=== PATIENT | female | born 1970 | race Caucasian/White ===

== ENCOUNTER → 2020-11-23 00:37 | Outpatient (CLI) | payer MEDICAID, SELFPAY ==
[2020-11-23 21:23] LABS: SARS-CoV-2 RNA PCR Negative
== END ==
PROVIDERS: Visit Provider Otolaryngology
DX: Z01.812 Encounter for preprocedural laboratory examination (principal); Z20.822 Contact with and (suspected) exposure to COVID-19
CPT/HCPCS: C9803; U0003; U0005

== ENCOUNTER 2020-11-26 01:27 | Day surgery (SDC) | payer MEDICAID, SELFPAY ==
[2020-11-19 14:26] VITALS: BMI 29.9
--- NOTE | 2020-11-25 05:36 | PM.HPGS ---
History of Present Illness History of Present Illness Consent: Risks, benefits, and alternatives have been discussed and questions answered. Patient agrees to proceed with procedure. Chief complaint: right thyroid mass Narrative: Catie Puente is a 50 year old female has a right thyroid nodule which is increased in size over the last several years she feels pressure when she swallows Review of Systems Review of Systems: All systems reviewed & are unremarkable except as noted in HPI and below PMFSH Family History Family History Mother Hypertension Thyroid disorder Sibling Hypertension Thyroid disorder Social History Social History Smoking status: Never smoker Alcohol intake: never Substance use: never Substance use type: does not use Spiritual care concerns: No Meds Home Medications and Allergies Home Medications Medication Instructions Recorded Confirmed Type losartan 25 mg tablet 25 mg PO DAILY 10/16/20 11/19/20 History bacillus coagulans-inulin 1 tablet PO DAILY 11/19/20 11/19/20 History [Probichew] Allergies Allergy/AdvReac Type Severity Reaction Status Date / Time Sulfa (Sulfonamide Allergy Intermediate Hives Verified 11/19/20 13:59 Antibiotics) Exam Narrative: Chest clear heart without murmurs abdomen is soft palpable right thyroid nodule Assessment and Plan Additional Plan Right thyroidectomy explained the risks Of possible recurrence lateral laryngeal nerve weakness
[2020-11-26] VITALS (9 sets, daily range): BP systolic 125–176; BP diastolic 75–94; PULSE 60–78; RESP 14–21; TEMP 36.1–36.8; O2SAT 97–100
--- NOTE | 2020-11-26 05:50 | WPDHPUPDATE1 ---
History and Physical Update Update Date/Time: 11/26/20 05:50 History and Physical has been reviewed, including an updated exam of the patient. There are NO changes in the patient's condition. Risks, benefits, and alternatives have been discussed and questions answered. Patient agrees to proceed with procedure.
--- NOTE | 2020-11-26 05:51 | WPDHPUPDATE1 ---
History and Physical Update Update Date/Time: 11/26/20 05:51 History and Physical has been reviewed, including an updated exam of the patient. There are NO changes in the patient's condition. Risks, benefits, and alternatives have been discussed and questions answered. Patient agrees to proceed with procedure.
[2020-11-26] MEDS: LACTATED RINGERS 1,000 ML 30 ML IV CONT ×2 (07:55→10:20)
[2020-11-26] MEDS: ACETAMINOPHEN 500 MG TABLET 1000 MG PO (07:57)
--- NOTE | 2020-11-26 08:28 | WPDANESEPPF ---
Anes - Initial Pre Proc Eval Procedure: Operation Date: 11/26/20 09:30 Proposed Procedures p Right Thyroidectomy - Shaq Lopez MD Date/Time: 11/26/20 08:28 Surgeon: Shaq Lopez MD Pre Op Diagnosis: right thyroid mass Patient Data Age: 50 Gender: F Height: 1.69 m Weight: 85.3 kg Last Vital Signs Temp 36.8 C 11/26/20 07:39 Pulse 66 11/26/20 07:39 Resp 18 11/26/20 07:39 BP 140/80 11/26/20 07:39 Pulse Ox 99 11/26/20 07:39 Allergies Allergy/AdvReac Type Severity Reaction Status Date / Time Sulfa (Sulfonamide Allergy Intermediate Hives Verified 11/19/20 13:59 Antibiotics) Home Medications Medication Instructions Recorded Confirmed Type losartan 25 mg tablet 25 mg PO DAILY 10/16/20 11/19/20 History bacillus coagulans-inulin 1 tablet PO DAILY 11/19/20 11/19/20 History [Probichew] Patient hx anesthesia problems: other (sore throat will use glidescope and 6.5 ETT) Family hx anesthesia problems: none PMFSH Past Medical History Medical History Hypertension Family History Family History Mother Hypertension Thyroid disorder Sibling Hypertension Thyroid disorder Social History Social History Smoking status: Never smoker Alcohol intake: never Substance use: never Substance use type: does not use Living arrangements: with family Spiritual care concerns: No Anes - Eval Final PreProcedure Day of Procedure 11/26/20 08:28 Patient weight: overweight Heart: regular rate and rhythm Lungs: clear to auscultation Airway: Mallampati scale class II Neurological: alert and oriented Last oral intake: >/= 8 hours ASA classification: II Emergent: no Anesthetic plan: proceed Anesthesia type and monitoring: general ETT and standard monitoring Informed Consent: The patient's anesthetic plan and its attendant risks and benefits were discussed with the patient/family/POA. Questions were solicited and answers provided to the satisfaction of the patient/family/POA.
[2020-11-26] MEDS: ceFAZolin 2 GM/D5W 50 ML 2 GM/50 ML BAG IVPB (09:25)
--- NOTE | 2020-11-26 10:13 | W.PM.PROC2 ---
Procedure Note - Detailed Date of Procedure 11/26/20 Pre-op Diagnosis right thyroid mass Post-op Diagnosis same Procedure Performed Right thyroid ectomy Surgeon Shaq Lopez MD Description of Procedure Patient was prepped and draped in fashion anesthesia a low collar incision was made subplatysmal flaps elevated mass was identified the superior pole of the right thyroid bipolar dissection the mass was removed hemostasis obtained with bipolar electrocautery incision closed with chromic and running Monocryl Estimated Blood Loss 10
[2020-11-26] MEDS: fentaNYL CITRATE INJ (*CRX) 100 MCG/2 ML VIAL 25 MCG IV PUSH ×5 (10:32→11:07)
[2020-11-26] MEDS: oxyCODONE HCL (*CRX) 5 MG TAB IR PO (11:45)
--- NOTE | 2020-11-28 06:31 | W.PM.PROC2 ---
Procedure Note - Detailed Date of Procedure 11/28/20 Pre-op Diagnosis right thyroid mass Surgeon Shaq Lopez MD Anesthesia general Estimated Blood Loss 10
== END 2020-11-26 12:20 | disposition home or self-care (01) ==
PROVIDERS: Visit Provider Otolaryngology
PROC: (CPT 60210; principal; 2020-11-26 09:30)
DX: E04.1 Nontoxic single thyroid nodule (principal); E06.5 Other chronic thyroiditis; I10 Essential (primary) hypertension
CPT/HCPCS: 60210; 88304; 88307; A9270; J0330; J0690; J1100; J2405; J2704; J3010; J7120